=== PATIENT | female | born 1990 | race Two or more races ===

== ENCOUNTER 2020-03-22 11:19 | Emergency (ER) | payer SELFPAY ==
--- NOTE | 2020-03-22 14:31 | ER Document Report ---
ED General - General Chief Complaint: Ear Pain Stated Complaint: EAR PAIN Time Seen by Provider: 03/22/20 13:10 - HPI Notes: Chief complaint: Pressure left ear and muffled hearing History of present illness: 29-year-old female in generally good health presents with complaint of nasal congestion and muffled hearing in left ear. Patient states that she was having some cold symptoms starting on 12 March. She went to a screening clinic and had a nasal swab for COVID on 15 March which was reported to her as positive. 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 Aside from her nasal congestion she has done quite well. She denies fever, chills, headache, myalgias, nausea vomiting or diarrhea. She has had some loss of smell and taste. Sensation muffled hearing in left ear seems to be getting a little worse. Patient is on no prescription medications. She does not have a primary care doctor. No known allergies. Non-smoker. Denies use of drugs or alcohol. Currently menstruating. No history of major surgery. Past Medical History - General Information source: Patient - Social History Smoking Status: Never Smoker Frequency of alcohol use: None Drug Abuse: None Family History: Reviewed & Not Pertinent - Medical History Medical History: Negative Surgical Hx: Negative Review of Systems - Review of Systems Notes: Constitutional: Negative for fever. HENT: As per HPI. Negative for sore throat. Eyes: Negative for visual changes. Cardiovascular: Negative for chest pain. Respiratory: Negative for shortness of breath. Gastrointestinal: Negative for abdominal pain, vomiting or diarrhea. Genitourinary: Negative for dysuria. Musculoskeletal: Negative for back pain. Skin: Negative for rash. Neurological: Negative for headaches, weakness or numbness. 10 point ROS negative except as marked above and in HPI. Physical Exam - Vital signs Vitals: Temp Pulse Resp BP Pulse Ox 98.7 F 87 16 138/82 H 100 03/22/20 11:27 03/22/20 11:27 03/22/20 11:27 03/22/20 11:27 03/22/20 11:27 - Notes Notes: GENERAL: Well-developed well-nourished female approximately stated age appearing in no acute distress. SKIN: Good turgor no rashes. HEAD: Normocephalic atraumatic. EYES: PERRLA. EOMI. Conjunctivae and sclerae clear. EARS: CANALS CLEAR. Left tympanic membrane is retracted with small amount of fluid present. NOSE: CLEAR. MOUTH: Moist mucosa. Good dentition. No stridor or edema. No drooling. NECK: Supple. No masses or thyromegaly. No adenopathy. Carotids 2+ without bruits. No JVD. BACK: Symmetrical without tenderness. CHEST: Respirations unlabored. Breath sounds clear and symmetrical. HEART: Regular rhythm. No murmur gallop or rub. ABDOMEN: Soft nontender without masses, organomegaly or rebound. Bowel sounds normally active. No bruits. GENITALIA: Deferred. EXTREMITIES: No edema. No calf tenderness. Cap refill less than 1.5 seconds. Dorsalis pedis and posterior tibial pulses 3+ and symmetrical. NEUROLOGICAL: GCS 15. Alert and oriented x3. Normal gait. Fluent speech. Cranial nerves II through XII intact. Sensorimotor and cerebellar normal. Normal tone. PSYCHIATRIC: Appropriate affect. Course - Vital Signs Vital signs: Temp Pulse Resp BP Pulse Ox 98.7 F 87 16 138/82 H 100 03/22/20 11:27 03/22/20 11:27 03/22/20 11:27 03/22/20 11:27 03/22/20 11:27 Discharge - Discharge Clinical Impression: COVID-19 Acute serous otitis media, left ear Qualifiers: Recurrence: non-recurrent Qualified Code(s): H65.02 - Acute serous otitis media, left ear Condition: Stable Disposition: HOME, SELF-CARE Additional Instructions: Serous Otitis Media You have serous otitis -- a vacuum or a fluid build-up in your middle ear cavity. This is caused by blockage of the eustachian tube, which connects the middle ear cavity to the back of the throat. Serous otitis is usually treated with decongestants. Antibiotics are given if there is a question of either early or chronic ear infection. Maneuvers to open the eustachian tube may help. For example, holding your nose then gently "breathing" air up against the closed nostrils may "pop" the eardrums (meaning the eustachian tube has opened). Unfortunately, this condition sometimes takes days or weeks to resolve. In young children, tubes may be required if serous otitis continues despite treatment. A second exam is usually scheduled to see if the problem has improved. If you develop severe ear pain, drainage from the ear, headache, or fever, call the doctor or return for re-examination. Prescriptions: Pseudoephedrine HCl [Sudafed 12 Hour] 120 mg PO Q12H 10 Days #20 tablet.er Forms: Return to Work Referrals: [facility] [Provider Group] - Follow up as needed
[2020-03-22 14:57] VITALS: BP 144/89
== END 2020-03-22 14:40 | disposition home or self-care (01) ==
LOC: ER 11:19
DX: U07.1 COVID-19 (principal); H65.02 Acute serous otitis media, left ear; R09.81 Nasal congestion
CPT/HCPCS: 99282

== ENCOUNTER 2020-03-24 08:06 | Emergency (ER) | payer SELFPAY ==
[2020-03-24 08:24] VITALS: BP 140/84
--- NOTE | 2020-03-24 08:48 | ER Document Report ---
ED ENT - General Chief Complaint: Ear Pain Stated Complaint: LEFT EAR PAIN Time Seen by Provider: 03/24/20 08:31 Mode of Arrival: Ambulatory Information source: Patient Notes: 29-year-old woman presenting to the emergency department with a history of left ear pain. I explained that the Tested positive for coronavirus on03/15/2000. She was seen in the emergency department 2 days ago, Sudafed for the ear congestion. Patient states that the medication caused her to feel spacey and so she has discontinued the medication and come to the emergency department for further evaluation and treatment. - Related Data Allergies/Adverse Reactions: No Known Allergies Allergy (Unverified 03/22/20 14:32) Past Medical History - Social History Smoking Status: Never Smoker Frequency of alcohol use: None Drug Abuse: None Family History: Reviewed & Not Pertinent Review of Systems - Review of Systems Notes: Constitutional: Negative for fever. HENT: See HPI Eyes: Negative for visual changes. Cardiovascular: Negative for chest pain. Respiratory: Negative for shortness of breath. Gastrointestinal: Negative for abdominal pain, vomiting or diarrhea. Genitourinary: Negative for dysuria. Musculoskeletal: Negative for back pain. Skin: Negative for rash. Neurological: Negative for headaches, weakness or numbness. 10 point ROS negative except as marked above and in HPI. Physical Exam - Vital signs Vitals: Temp Pulse Resp BP Pulse Ox 98.4 F 92 14 140/84 H 99 03/24/20 08:10 03/24/20 08:10 03/24/20 08:10 03/24/20 08:10 03/24/20 08:10 - Notes Notes: PHYSICAL EXAMINATION: Physical Exam: General: Well-nourished well-developed in no acute distress HEENT: NC/AT, pupils equal round and reactive to light, left TM, dull, positive air-fluid level, right TM normal. MM moist,nares clear, oropharynx clear, airway patent Neck: supple, no adenopathy, no masses. Good range of motion Lungs: clear, no wheezing, no rales no rhonchi CVS: Regular rate and rhythm no murmur gallop or rub Abdomen: Soft, active, nontender, no masses, no hepatosplenomegaly Ext: No edema, clubbing or cyanosis. Neuro: Alert and responsive, moving all 4 extremities on command, cranial nerves intact, no focal findings Skin: Intact no open lesions, no rash PSYCH: Normal mood, normal affect. Course - Re-evaluation Re-evalutation: 03/24/20 08:45 Serous otitis media, patient is given a prescription for Claritin-D and prednisone 20 mg twice daily for 5 days. She is instructed to take the medications as prescribed and to follow-up with your doctor as needed. - Vital Signs Vital signs: Temp Pulse Resp BP Pulse Ox 98.4 F 92 14 140/84 H 99 03/24/20 08:21 03/24/20 08:10 03/24/20 08:10 03/24/20 08:10 03/24/20 08:10 Discharge - Discharge Clinical Impression: COVID-19 Acute serous otitis media, left ear Qualifiers: Recurrence: non-recurrent Qualified Code(s): H65.02 - Acute serous otitis media, left ear Condition: Good Disposition: HOME, SELF-CARE Instructions: Serous Otitis Media ([facility]) Additional Instructions: You were seen in the emergency department today with findings consistent with fluid behind the left eardrum. Please take medications as prescribed Claritin- D, prednisone and follow-up with your doctor as needed. HOME CARE INSTRUCTIONS & INFORMATION: Thank you for choosing us for your medical needs. We hope you're satisfied with the care you received. After you leave, you must properly care for your problem and, at the same time, observe its progress. Any condition can change. Some illnesses can change rapidly over hours or days. If your condition worsens, return to the Emergency Department or see your physician promptly. ABOUT YOUR X-RAYS AND EKG'S: If you had an EKG or X-rays taken, they have been read by the Emergency Physician. The X-rays and EKG's will also be read by a Radiologist or Defensive Fire Control Systems Operator within 24 hours. If discrepancies are noted, you will be notified by telephone. Please be certain the ED has a correct telephone number & address where you can be reached. Also, realize that some fractures or abnormalities do not show up on initial X-rays. If your symptoms continue, see your physician. ABOUT YOUR LABORATORY TEST: If you had laboratory tests, the results have been reviewed by the Emergency Physician. Some test results (for example cultures) may not be available for several days. You will be contacted if any test result shows you need additional treatment. Please be certain the ED has a correct telephone number and address where you can be reached. ABOUT YOUR MEDICATIONS: You will receive instructions on how to take your medicine on the prescription label you receive. Additional information may be provided by the Pharmacy. If you have questions afterwards, call the ED for clarification or further instructions. Some prescribed medications may cause drowsiness. Do not perform tasks such as driving a car or operating machinery without consulting your Pharmacist. If you feel you need a refill of pain medication, your condition will need re-evaluation. Please do not call for a refill of any medication. ABOUT YOUR SIGNATURE: Signature of this document acknowledges to followin. Understanding that you received emergency treatment and that you may be released before al medical problems are known or treated. Please be certain the ED has a correct phone number & address where you can be reached. 2. Acknowledgement that you will arrange for follow-up care as recommended. 3. Authorization for the Emergency Physician to provide information to your follow-up Physician in order to maximize your care. AT ANY TIME, IF YOUR SYMPTOMS CHANGE SIGNIFICANTLY OR WORSEN OR YOU DEVELOP NEW SYMPTOMS, RETURN TO THE EMERGENCY DEPARTMENT IMMEDIATELY FOR RE-EVALUATION. OUR GOAL IS TO PROVIDE EXCELLENT MEDICAL CARE! WE HOPE THAT WE HAVE MET YOUR EXPECTATIONS DURING YOUR EMERGENCY DEPARTMENT VISIT AND THAT YOU FEEL YOU HAVE RECEIVED EXCELLENT CARE! Prescriptions: Loratadine [Claritin 10 mg Tablet] 10 mg PO DAILY #15 tablet Prednisone [Deltasone 20 mg Tablet] 1 tab PO BID 5 Days #10 tablet
== END 2020-03-24 09:02 | disposition home or self-care (01) ==
LOC: ER 08:06
DX: H65.02 Acute serous otitis media, left ear (principal); U07.1 COVID-19
CPT/HCPCS: 99283

== ENCOUNTER 2020-04-05 17:22 | Emergency (ER) | payer SELFPAY ==
[2020-04-05 17:31] VITALS: BP 145/98
--- NOTE | 2020-04-05 18:44 | ER Document Report ---
HPI - HPI Patient complains to provider of: Ear fullness, headache Time Seen by Provider: 04/05/20 18:01 Pain Level: 0 Notes: 30-year-old female to the emergency department with complaints of headache and ear fullness for the past month. She states that she was on loratadine and prednisone but never completed the course of therapy. She states that her ears bother her the most. She states that she feels like she is underwater most of the time and or muffled. She often ringing in her ears as well. Occasionally she has temporal headache but usually that can be controlled with [id number] medicine. She does not currently have a headache. She states that she was put on propanolol for the headaches. She only takes propranolol occasionally. She denies any nasal congestion or sinus pressure. She denies any sore throat. She was positive for coronavirus at the end of February but has had a negative swab on March 31. She has no cough, chest pain, shortness of breath. - ROS Systems Reviewed and Negative: Yes All other systems reviewed and negative - CONSTITUTIONAL Constitutional: DENIES: Fever, Chills - EENT EENT: REPORTS: Ear Pain, Congestion. DENIES: Sore Throat Notes: Ear fullness, discomfort - NEURO Neurology: REPORTS: Headache. DENIES: Weakness, Vision blurred, Dizzinesss / Vertigo - CARDIOVASCULAR Cardiovascular: DENIES: Chest pain - RESPIRATORY Respiratory: DENIES: Trouble Breathing, Coughing - GASTROINTESTINAL Gastrointestinal: DENIES: Abdominal Pain, Nausea, Patient vomiting, Diarrhea - MUSCULOSKELETAL Musculoskeletal: DENIES: Back Pain, Neck Pain, Swelling - DERM Skin Color: Normal Skin Problems: None Past Medical History - General Information source: Patient - Social History Smoking Status: Never Smoker Frequency of alcohol use: None Drug Abuse: None Family History: Reviewed & Not Pertinent Patient has homicidal ideation: No Vertical Provider Document - CONSTITUTIONAL Agree With Documented VS: Yes Exam Limitations: No Limitations General Appearance: WD/WN, No Apparent Distress - HEENT HEENT: Atraumatic, Normocephalic, PERRLA Notes: External ear canals are within normal limits with no erythema or discharge. Noted bilateral serous effusion for the TMs. TMs are not bulging or erythematous. There is no perforation. Airway is grossly patent. No pharyngeal erythema or exudates. No voice change. No drooling. No Kyrie's angina. - NECK Neck: Normal Inspection, Supple Notes: No nuchal rigidity/meningismus - RESPIRATORY Respiratory: Breath Sounds Normal, No Respiratory Distress. negative: Rales, Rhonchi, Wheezing - CARDIOVASCULAR Cardiovascular: Regular Rate, Regular Rhythm, No Murmur - GI/ABDOMEN Gastrointestinal: Abdomen Soft, Abdomen Non-Tender, No Organomegaly - BACK Back: Normal Inspection - MUSCULOSKELETAL/EXTREMETIES Musculoskeletal/Extremeties: MAEW, FROM, Non-Tender - NEURO Level of Consciousness: Awake, Alert, Appropriate Motor/Sensory: No Motor Deficit, No Sensory Deficit - DERM Integumentary: Warm, Dry, No Rash Course - Re-evaluation Re-evalutation: Impression: Eustachian tube dysfunction; do think the headache could potentially be related to this as well. She was positive for Covid at the end of February but has had a negative test since. Do not think she needs to be retested. Will start on Flonase and will encourage her to continue to take the loratadine without fail. Encouraged her to follow-up with ear nose and throat specialty if her symptoms are not improving in the next week. She agrees with the plan. Encouraged returning if any worsening symptoms. - Vital Signs Vital signs: Temp Pulse Resp BP Pulse Ox 97.8 F 79 18 145/98 H 100 04/05/20 18:29 04/05/20 17:27 04/05/20 17:27 04/05/20 17:27 04/05/20 17:27 Discharge - Discharge Clinical Impression: Eustachian tube dysfunction Qualifiers: Laterality: bilateral Qualified Code(s): H69.83 - Other specified disorders of Eustachian tube, bilateral Ear fullness Qualifiers: Laterality: bilateral Qualified Code(s): H93.8X3 - Other specified disorders of ear, bilateral Headache Qualifiers: Headache type: unspecified Headache chronicity pattern: acute headache Intractability: not intractable Qualified Code(s): R51.9 - Headache, unspecified Condition: Stable Disposition: HOME, SELF-CARE Additional Instructions: Take the Flonase and loratadine every single day for 1 month. If you do not notice any change in your symptoms in 1 week please follow-up with the rotary shear cutter. Return if any worsening symptoms. Prescriptions: Fluticasone Propionate [Flonase Allergy Relief] 1 spray NS QHS #1 spray.susp Loratadine 10 mg PO DAILY #30 tab.rapdis Referrals: SUELLEN ALBERTO DO [ASSOCIATE] - Follow up in 1 week
== END 2020-04-05 18:50 | disposition home or self-care (01) ==
LOC: ER 17:22
DX: H69.83 Other specified disorders of Eustachian tube, bilateral (principal); H93.8X3 Other specified disorders of ear, bilateral; R51.9 Headache, unspecified
CPT/HCPCS: 99283